=== PATIENT | female | born 1950 | race Caucasian/White ===

== ENCOUNTER 2022-02-02 23:07 | Emergency (ER) | payer MEDICARE, OTHER ==
[~2022-02-02] VITALS: Ht 162.6 cm; Wt 74.4 kg
--- NOTE | 2022-02-02 23:30 | NUR ---
BIBS C/O RIGHT HAND PAIN S/P "BENT MIDDLE FINGER BACKWARDS". PLACED COMFORTABLY IN BED.
--- NOTE | 2022-02-03 00:28 | NUR ---
Patient discharged to home in stable condition. Written and verbal after care instructions given. Patient verbalizes understanding of instruction.
[2022-02-03 00:29] VITALS: BP 153/75
== END 2022-02-03 00:29 | disposition home or self-care (01) ==
LOC: ER 23:25
DX: S63.91XA Sprain of unspecified part of right wrist and hand, initial encounter (principal); F41.9 Anxiety disorder, unspecified; X58.XXXA Exposure to other specified factors, initial encounter; Y93.89 Activity, other specified; Y92.830 Public park as the place of occurrence of the external cause; Y99.8 Other external cause status
CPT/HCPCS: 73130-TC